=== PATIENT | female | born 1995 | race Caucasian/White ===

== ENCOUNTER 2016-06-02 03:33 | Inpatient (IN) | payer OTHER ==
[2016-06-02] VITALS (109 sets, daily range): BP systolic 98–151; BP diastolic 48–88
[~2016-06-02] VITALS: Ht 165.1 cm; Wt 114.0 kg
[2016-06-02] MEDS ORDERED: PRENTAB9 PO (03:56)
[2016-06-02 04:27] LABS: MEAN CORPUSCULAR HEMOGLOBIN 28.5 pg (27.0-33.0); MEAN CORPUSCULAR HGB CONC 33.3 g/dl (32.0-36.5); MEAN CORPUSCULAR VOLUME 85.5 fl (80.0-96.0); RED CELL DISTRIBUTION WIDTH 14.6 % (11.5-14.5); WHITE BLOOD COUNT 9.3 K/mm3 (4.0-10.0)
[2016-06-02] MEDS ORDERED: FENTANYL 2MCG/ML ROPIVACAINE 0.2% IN 0.9% NACL 200ML IVBAG As Ordered ONE (06:02)
[2016-06-02] MEDS ORDERED: LACTATED RINGER'S 1000 ML IV ONE (06:15)
[2016-06-02 06:39] LABS: ALBUMIN 2.5 GM/DL (3.2-5.2); ALBUMIN/GLOBULIN RATIO 0.69 (1.00-1.93); ALKALINE PHOSPHATASE 210 U/L (45-117); ALT/SGPT 15 U/L (12-78); ANION GAP 9 MEQ/L (8-16); AST/SGOT 15 U/L (15-37); BILIRUBIN,DIRECT < 0.1 MG/DL (0.0-0.2); BILIRUBIN,TOTAL 0.2 MG/DL (0.2-1.0); BLOOD UREA NITROGEN 12 MG/DL (7-18); CALCIUM LEVEL 8.7 MG/DL (8.5-10.1); CARBON DIOXIDE LEVEL 24 MEQ/L (21-32); CHLORIDE LEVEL 106 MEQ/L (98-107); GLUCOSE, FASTING 114 MG/DL (70-105); POTASSIUM SERUM 4.1 MEQ/L (3.5-5.1); SODIUM LEVEL 139 MEQ/L (136-145); TOTAL PROTEIN 6.1 GM/DL (6.4-8.2); URIC ACID 4.5 MG/DL (2.6-6.0)
--- NOTE | 2016-06-02 06:39 | HPE ---
DATE OF ADMISSION: 06/02/2016 HISTORY OF PRESENT ILLNESS: This lady is a 21-year-old 1, para 0, last menstrual period (LMP) 08/22/2015, estimated date of confinement (EDC) 05/28/2016, at 40 and 5 weeks of gestation with history of spontaneous rupture of membranes and active labor. LABORATORY DATA: Labs show A positive, HIV negative, hepatitis negative, RPR negative, rubella immune. Varicella immune. Urine negative. Gonorrhea and chlamydia negative. One-hour glucose early was 87, one-hour and 28 weeks 103. GBS was negative. Had an echogenic focus but declined quad screening. Declined CF. Her risk factors are she has anemia, chronic. Also she had midrange blood pressures as noted today. She did not have those at her visits. Her blood pressure is 140 to 180, respirations are 18, pulse is 110 and temperature is 99.7. Her hemoglobin is 9.9, hematocrit 29.9 and platelets are 279. OBJECTIVE: On examination, she is gemma. She has a category one strip. She is normocephalic, atraumatic. Neck full range of motion. Pupils equal and reactive to light. Distal pulses are symmetric. No evidence of deep venous thrombosis (DVT), pulmonary embolism (PE) or superficial phlebitis. Chest is clear bilaterally to bases. No wheezes or rhonchi. Uterus is , appropriate symphysis fundus height, vertex presenting, 4 cm. Copious amounts of amniotic fluid, 70% effaced -3 station. She has no rashes, lesions or pruritus. No arthralgia or myalgia. No complaints of wheezes, shortness of breath, dyspnea on exertion or cough. She has no chest pain. She is not bruising. She is not bleeding. She is neuro complete. No incontinency, urgency or frequency. No nausea, vomiting, diarrhea or constipation. She has no diabetic issues. PAST MEDICAL AND SURGICAL HISTORY: is unremarkable. SOCIAL HISTORY: She does not smoke or drink abuse drugs. She is . There is no domestic violence. ASSESSMENT: In summary, we have a late-term gestation in active labor. Planning on hydrating her. Epidural as needed and because of her midrange blood pressures, we have done a pre-eclamptic profile.
[2016-06-02] MEDS ORDERED: REFRIGERATOR IV KEYS XX PRN (07:15)
[2016-06-02] MEDS ORDERED: diphenhydrAMINE INJ 50MG/ML VIAL (J1200) IV PRN (07:15)
[2016-06-02] MEDS ORDERED: NALOXONE INJ 0.4 MG/1 ML VIAL (J2310) IV PRN (07:15)
[2016-06-02] MEDS ORDERED: EPIDURAL COMMENT XX SCH (07:15)
[2016-06-02] MEDS ORDERED: EPIDURAL/PCA KEYS XX PRN (07:15)
[2016-06-02] MEDS ORDERED: FENTANYL/ROPIVACAINE/NACL BAG 200 ML EPIDURAL SCH (07:15)
[2016-06-02] MEDS ORDERED: ONDANSETRON 4MG/2ML VIAL (J2405) IV PRN (07:15)
[2016-06-02] MEDS: ePHEDrine SULFATE 25 MG/5 ML(5MG/ML) SYRINGE IV PRN ×2 (08:03→08:55)
[2016-06-02] MEDS: LACTATED RINGER'S 1000 ML IV PRN ×2 (08:08→14:06)
--- NOTE | 2016-06-02 08:09 | IPNPDOC ---
Text Note Date of Service The patient was seen on 06/02/16. NOTE [id number] @ 0757- assumed care from Dr. Santa @ 0730 21 yo G1 @ 40+5 by LMP of [id number] & 8 wk US done on [id number], FINAL PAVAN- [id number], presented to L&D overnight with SROM clear fluid @ 0330. GBS negative. S: comfortable resting in bed on left side with epidural infusing. Reports feeling pelvic pressure that comes and goes. Spouse is at bedside. O: VS- mild range pressures noted from admission until epidural placement. After epidural all VS WNL, afebrile (pre-labs drawn- all normal; still awaiting PCR) FHR- 160, mod variability, no accels, intermittent early decels, occasional late deceleration CTX- Q 2 min, lasting < 90 sec, palpated as strong, resting tone palpated as soft SVE- deferred; last exam @ 0630 3-4 cm/75%/-2, VTX [id number] grams SROM x 4.5 hours, fluid remains clear DTRs +1, no clonus PMH- denies PSH- T&A @ 6 yo; lymph node removed from behind left ear-2013 MEDS- PNV, iron, tums Allergies- NKDA PROBLEM LIST: 1. obesity- BMI 31 at start of 2. EIF- no f/u per patient desire 3. anemia- iron TID 4. excessive wt gain A: 21 yo G1 @ 40+5 with SROM x 4.5 hours, fluid remains clear, CAT II FHR tracing, no s/s of infection noted P: continue to monitor and assess, reassess in 1-2 hours, continue to monitor for s/s of infection, allow spontaneous labor to continue VS,Fishbone, I+O VS, Fishbone, I+O Laboratory Tests 06/02/16 04:17 Red Blood Count 3.49 L, Mean Corpuscular Volume 85.5, Mean Corpuscular Hemoglobin 28.5, Mean Corpuscular Hemoglobin Concent 33.3, Red Cell Distribution Width 14.6 H Vital Signs Date Time Temp Pulse Resp B/P Pulse Ox O2 Delivery O2 Flow Rate FiO2 06/02/16 07:25 98.5 108 111/54 06/02/16 06:59 18 TERRENCE OLIVIA CNM Jun 02, 2016 08:09
[2016-06-02] MEDS ORDERED: OXYTOCIN 30 UNITS IN 0.9% NaCl 500ML IV BAG (J2590) As Ordered ONE (10:26)
[2016-06-02] MEDS ORDERED: OXYTOCIN DRIP 30 UNITS in APPROPRIATE DILUENT 1 EA IV SCH (10:30)
--- NOTE | 2016-06-02 10:34 | IPNPDOC ---
Text Note Date of Service The patient was seen on 06/02/16. NOTE [id number] @ 1030- assumed care from Dr. Santa @ 0730 21 yo G1 @ 40+5 by LMP of [id number] & 8 wk US done on [id number], FINAL PAVAN- [id number], presented to L&D overnight with SROM clear fluid @ 0330. GBS negative. S: comfortable resting in bed on left side with epidural infusing. Reports feeling pelvic pressure that comes and goes. Spouse is at bedside. O: VS- mild range pressures noted from admission until epidural placement. After epidural all VS WNL, afebrile (pre-labs drawn- all normal; still awaiting PCR) FHR- 155, mod variability, + accels, intermittent early decels, occasional late deceleration, occasional variable decel CTX- Q 2-3 min, lasting < 90 sec, palpated as strong, resting tone palpated as soft SVE- 5/75/-2, mid/med/vtx [id number] grams SROM x 7 hours, fluid remains clear A: 21 yo G1 @ 40+5 with SROM x 47 hours, fluid remains clear, CAT II FHR tracing , no s/s of infection noted, minimal progress in last 4 hours P: continue to monitor and assess, reassess in 2 hours, continue to monitor for s/s of infection, initiate pitocin IOL per unit protocol. Consult with Dr. rAreola. VS,Fishbone, I+O VS, Fishbone, I+O Laboratory Tests 06/02/16 04:17 Red Blood Count 3.49 L, Mean Corpuscular Volume 85.5, Mean Corpuscular Hemoglobin 28.5, Mean Corpuscular Hemoglobin Concent 33.3, Red Cell Distribution Width 14.6 H Vital Signs Date Time Temp Pulse Resp B/P Pulse Ox O2 Delivery O2 Flow Rate FiO2 06/02/16 09:27 98.9 118 111/55 06/02/16 06:59 18 TERRENCE OLIVIA CNM Jun 02, 2016 10:34
--- NOTE | 2016-06-02 17:15 | IPNPDOC ---
Text Note Date of Service The patient was seen on 06/02/16. NOTE [id number] @ 1712 21 yo G1 @ 40+5 by LMP of [id number] & 8 wk US done on [id number], FINAL PAVAN- [id number], presented to L&D overnight with SROM clear fluid @ 0330. GBS negative. S: uncomfortable resting in bed with epidural infusing. Reports feeling pelvic pressure that comes and goes. Spouse is at bedside. O: VS- mild range pressures noted from admission until epidural placement. After epidural all VS WNL, afebrile, pre-e labs normal FHR- 150, mod variability, + accels, persistent early decelrations CTX- Q 2-4 min, lasting < 90 sec, palpated as strong, resting tone palpated as soft SVE- 8/100/0 per RN Pitocin @ 8 mU/min [id number] grams SROM x 13.5 hours, fluid remains clear A: 21 yo G1 @ 40+5 with SROM x 13.5 hours, fluid remains clear, CAT I FHR tracing, no s/s of infection noted P: continue to monitor and assess, reassess in 2 hours, continue to monitor for s/s of infection, continue pitocin IOL per unit protocol. Dr. Wright is now backup and is aware of pt status VS,Rennybone, I+O VS, Fishbone, I+O Laboratory Tests 06/02/16 04:17 Red Blood Count 3.49 L, Mean Corpuscular Volume 85.5, Mean Corpuscular Hemoglobin 28.5, Mean Corpuscular Hemoglobin Concent 33.3, Red Cell Distribution Width 14.6 H Vital Signs Date Time Temp Pulse Resp B/P Pulse Ox O2 Delivery O2 Flow Rate FiO2 06/02/16 15:15 100.2 06/02/16 14:48 126 18 113/57 TERRENCE OLIVIA CNM Jun 02, 2016 17:15
--- NOTE | 2016-06-02 19:09 | IPNPDOC ---
Text Note Date of Service The patient was seen on 06/02/16. NOTE [id number] @ 1905 21 yo G1 @ 40+5 by LMP of [id number] & 8 wk US done on [id number], FINAL PAVAN- [id number], presented to L&D overnight with SROM clear fluid @ 0330. GBS negative. S: uncomfortable resting in bed with epidural infusing, epidural has been redosed twice. Reports feeling pelvic pressure that comes and goes. Spouse is at bedside. O: VS- mild range pressures noted from admission until epidural placement. T- 100.7, tachycardia, BPs normal range FHR- 160, mod variability, + accels, persistent early decelrations CTX- Q 2-4 min, lasting < 90 sec, palpated as strong, resting tone palpated as soft SVE- 9/100/0 per RN Pitocin @ 8 mU/min [id number] grams SROM x 18 hours, fluid remains clear A: 21 yo G1 @ 40+5 with SROM x 18 hours, fluid remains clear, Sx of infection noted (maternal tachycardia, maternal temp, FHR increasing) P: continue to monitor and assess, reassess in 2 hours, initiate unasyn IV Q 6 hours, continue pitocin IOL per unit protocol. Dr. Wright contacted and informed of patient condition, suspect chorio, antibiotics being started. Dr. Wright assumes care @ 1930 VS,Rennybone, I+O VS, Rennybone, I+O Laboratory Tests 06/02/16 04:17 Red Blood Count 3.49 L, Mean Corpuscular Volume 85.5, Mean Corpuscular Hemoglobin 28.5, Mean Corpuscular Hemoglobin Concent 33.3, Red Cell Distribution Width 14.6 H Vital Signs Date Time Temp Pulse Resp B/P Pulse Ox O2 Delivery O2 Flow Rate FiO2 06/02/16 18:22 100.7 133 18 129/72 TERRENCE OLIVIA CNM Jun 02, 2016 19:09
[2016-06-02] MEDS: AMPICILLIN SOD/SULBACTAM SOD 3 GM in D5W MINI-BAG PLUS 100 ML IV SCH (19:12)
[2016-06-03] VITALS (13 sets, daily range): BP systolic 129–162; BP diastolic 58–90
[2016-06-03] MEDS: AMPICILLIN SOD/SULBACTAM SOD 3 GM in D5W MINI-BAG PLUS 100 ML IV SCH (01:24)
[2016-06-03] MEDS ORDERED: OXYTOCIN DRIP 30 UNITS in APPROPRIATE DILUENT 1 EA IV SCH (02:27)
[2016-06-03] MEDS ORDERED: ONDANSETRON 4MG/2ML VIAL (J2405) IV PRN (02:30)
[2016-06-03] MEDS ORDERED: MEASLES,MUMPS,RUBELLA VACCINE INJ (MMR-II) (90707) SC SCH (02:30)
[2016-06-03] MEDS ORDERED: PROMETHAZINE 25 MG TAB PO PRN (02:30)
[2016-06-03] MEDS ORDERED: RHOGAM 300 MCG (1500 IU) INJ (J2790) IM SCH (02:30)
[2016-06-03] MEDS ORDERED: DIBUCAINE 1% OINTMENT 30GM TOP PRN (02:30)
[2016-06-03] MEDS ORDERED: METHYLERGONOVINE MALEATE 0.2 MG/ML VIAL (J2210) IM PRN (02:30)
[2016-06-03] MEDS: IBUPROFEN 800 MG TAB PO PRN ×2 (03:28→13:10)
[2016-06-03] MEDS: DOCUSATE SODIUM 100 MG CAP PO SCH ×2 (08:11→19:27)
[2016-06-03] MEDS: PRENATAL VITAMIN TAB PO SCH (08:11)
[2016-06-03] MEDS: ACETAMINOPHEN 500 MG TAB PO PRN (19:27)
[2016-06-04] MEDS: IBUPROFEN 800 MG TAB PO PRN ×2 (02:57→12:53)
[2016-06-04 05:58] VITALS: BP 133/72
[2016-06-04] MEDS ORDERED: COLA100C3 PO (07:15)
[2016-06-04] MEDS ORDERED: ACET50TA PO (07:17)
[2016-06-04] MEDS ORDERED: IBUP-1114 PO (07:17)
[2016-06-04] MEDS ORDERED: NUPE1OIN2 TOP (07:18)
[2016-06-04] MEDS: DOCUSATE SODIUM 100 MG CAP PO SCH (07:46)
[2016-06-04] MEDS: PRENATAL VITAMIN TAB PO SCH (07:47)
[2016-06-04] MEDS: ACETAMINOPHEN 500 MG TAB PO PRN (07:47)
--- NOTE | 2016-06-04 10:24 | DSES ---
DATE OF ADMISSION: 06/02/2016 DATE OF DISCHARGE: This lady is a 2, now para 1 admitted at 40 and 5 weeks gestation with spontaneous rupture of membranes. GBS negative. She had a spontaneous vaginal delivery of a live male infant 9 pounds 2 ounces. scores of 7 and 8 at 1 and 5 minutes, respectively. She had a second degree tear, which was oversewn in the usual fashion. Risk factors is she has chronic anemia. She had midrange blood pressures, although she had a preeclamptic workup, which was negative, and she had questionable chorioamnionitis. Baby is in the NICU because of questionable chorio. On her second day, we discussed phlebitis, cystitis, mastitis, endometritis and cellulitis, diet, exercise pain management, perineal, breast and wound care. Method of control is undecided at the present time. On discharge, her blood pressure is 133/72, respirations 18, pulse 123 and temperature is 97.3. Her hemoglobin was 9.9, hematocrit 29.9 and platelets are 279. White count 9.3. The rest of the examination is unremarkable. She is normocephalic, atraumatic. Neck with full range of motion. Pupils equal and reactive to light. Thyroid is normal. No jugular venous distention (JVD), bruits. Lungs are clear bilaterally to the bases. Distal pulses are symmetric. No costovertebral angle tenderness. Uterus 2 below. Lochia is moderate. Perineum is healing with a second-degree tear. No rashes, lesions or pruritus. No arthralgia, myalgia. No complaints of cough, wheezes, shortness of breath or dyspnea on exertion. No chest pain. Not bleeding. Neuro complete. No incontinency, urgency, or frequency. No nausea, vomiting, diarrhea or constipation. Past [employer], medical and surgical history noncontributory. She does not smoke or drink or abuse drugs and there is no domestic violence. Presently, she is in the NICU visiting with her baby. We plan to make her a boarder if she does not want to go home today and have a 6-week checkup with [facility] and meds on discharge.
== END 2016-06-04 14:50 | disposition home or self-care (01) | DRG 775 ==
LOC: M LDO 03:33 → M LDI 04:04 → M OBS 06-03 04:25
PROVIDERS: ADMIT Obstetrics & Gynecology; ATTEND Obstetrics & Gynecology
PROC: 10E0XZZ Delivery of Products of Conception, External Approach (ICD-10-PCS; principal; 2016-06-03)
PROC: 0KQM0ZZ Repair Perineum Muscle, Open Approach (ICD-10-PCS; 2016-06-03)
DX: O48.0 Post-term pregnancy (principal); O41.1230 Chorioamnionitis, third trimester, not applicable or unspecified; O99.02 Anemia complicating childbirth; Z3A.40 40 weeks gestation of pregnancy; D64.9 Anemia, unspecified; O99.214 Obesity complicating childbirth; E66.9 Obesity, unspecified; O70.1 Second degree perineal laceration during delivery; Z37.0 Single live birth